=== PATIENT | male | born 1945 | race Caucasian/White ===

== ENCOUNTER 2024-08-16 09:35 | Day surgery (SDC) | payer MEDICARE ==
[2024-08-10 10:40] LABS: BASOPHILS % (AUTO) 0.8 % (0-1); EOSINOPHILS # (AUTO) 0.1 X10'3 (0-0.9); EOSINOPHILS % (AUTO) 3.4 % (0-6); LYMPHOCYTES # (AUTO) 1.4 X10'3 (1.1-4.8); LYMPHOCYTES % (AUTO) 38.2 % (21-51); MEAN CORPUSCULAR HEMOGLOBIN 32.2 PG (27.0-31.0); MEAN CORPUSCULAR HGB CONC 34.7 g/dL (33.0-36.5); MEAN CORPUSCULAR VOLUME 92.8 FL (78-98); MEAN PLATELET VOLUME 8.9 FL (7.4-10.4); MONOCYTES # (AUTO) 0.2 X10'3 (0-0.9); NEUTROPHILS % (AUTO) 52.6 % (42-75); PRE OP HEMATOCRIT 39.5 % (42.0-52.0); PRE OP HEMOGLOBIN 13.7 g/dL (14.0-17.9); PRE OP WHITE BLOOD COUNT 3.7 10'3 (4.8-10.8); RED BLOOD COUNT 4.25 X10'6 (4.70-6.10); RED CELL DISTRIBUTION WIDTH 15.6 % (11.5-14.5)
[2024-08-10 10:57] LABS: ALBUMIN 4.3 G/DL (3.4-5.0); BLOOD UREA NITROGEN 16 MG/DL (7-18); BUN/CREATININE RATIO 20.3 (10.0-20.0); CALCIUM 8.7 MG/DL (8.5-10.1); CHLORIDE 105 MMOL/L (99-107); CREATININE 0.79 MG/DL (0.60-1.10); PRE OP ALT 40 U/L (30-65); PRE OP ANION GAP 6 (8-16); PRE OP AST 27 U/L (10-37); PRE OP GLUCOSE 101 MG/DL (70-104); PRE OP SODIUM 142 MMOL/L (135-145); TOTAL CARBON DIOXIDE 30.9 MMOL/L (24-32); eGFR > 90 ML/MIN
[2024-08-10 10:59] LABS: PRE OP PLATELET COUNT 77 X10'3 (140-440)
[2024-08-10 11:17] LABS: ALBUMIN/GLOBULIN RATIO 1.4 (1.1-1.5); ALKALINE PHOSPHATASE 78 IU/L (46-116); PRE OP BILIRUB, TOTAL 0.6 MG/DL (0.0-1.0); TOTAL PROTEIN 7.3 G/DL (6.4-8.2)
[2024-08-16] VITALS (10 sets, daily range): BP systolic 117–135; BP diastolic 60–77; PULSE 50–66; RESP 12–16; TEMP 97.8; O2SAT 94–99
[~2024-08-16] VITALS: Ht 185.4 cm; Wt 104.1 kg
[2024-08-16] MEDS: ceFAZolin 2gm in dextrose, iso 50 ML IV ONE (05:30)
[~2024-08-16 09:35] MED LIST: DAPA10TA; FINA5TAB11; FLO0.4C; INSU100I38; LEVO112T5; MULT-1249 PO; ROSU40TA89; TIRZ5PEN
[2024-08-16] MEDS: famotidine 20mg tablet PO ONE (10:05)
[2024-08-16] MEDS: ringers solution, lacted 1,000 ML IV SCH (10:06)
[2024-08-16] MEDS ORDERED: iohexol 350MG/ML 100ml bottle IV ONE (11:09)
[2024-08-16] MEDS ORDERED: STERILE BLADIN ONE (11:10)
[2024-08-16] MEDS ORDERED: WATER FOR INJ BLADIN ONE (11:10)
[2024-08-16] MEDS ORDERED: MITOMYCIN BLADIN ONE (11:10)
[2024-08-16] MEDS ORDERED: propofol inj 20 ML IV ONE (11:21)
[2024-08-16] MEDS ORDERED: midazolam 1 mg/ML 2ml injection ONE (11:21)
[2024-08-16] MEDS ORDERED: fentaNYL/PF 50MCG/1 ML 2ML syringe ONE (11:21)
[2024-08-16] MEDS ORDERED: sevoflurane 250ml liquid IH ONE (11:22)
[2024-08-16] MEDS ORDERED: morphine 2 MG/ML inj. syringe IV PRN (12:10)
[2024-08-16] MEDS ORDERED: morphine 4 MG/ML inj SYRINge IV PRN (12:10)
[2024-08-16] MEDS ORDERED: proCHLORperazine 10 MG/2 ml inj IV PRN (12:10)
[2024-08-16] MEDS ORDERED: ondansetron/PF 4mg/2ml inj IV PRN (12:10)
[2024-08-16] MEDS ORDERED: meperidine/PF 25mg/ml syringe IV PRN ×3 (12:10)
[2024-08-16] MEDS ORDERED: ringers solution, lacted 1,000 ML IV SCH (12:10)
[2024-08-16] MEDS: iohexol 350MG/ML 100ml bottle IV ONE (12:10)
== END 2024-08-16 13:59 | disposition home or self-care (01) ==
LOC: PAS 09:35 → EDSEX 15:45
PROVIDERS: ATTEND Urology
DX: C67.9 Malignant neoplasm of bladder, unspecified (principal); N32.89 Other specified disorders of bladder; I49.1 Atrial premature depolarization; E03.9 Hypothyroidism, unspecified; M19.90 Unspecified osteoarthritis, unspecified site; E11.9 Type 2 diabetes mellitus without complications; E78.5 Hyperlipidemia, unspecified; Z87.891 Personal history of nicotine dependence; Z85.51 Personal history of malignant neoplasm of bladder; Z79.4 Long term (current) use of insulin; Z98.890 Other specified postprocedural states; Z79.890 Hormone replacement therapy; Z83.3 Family history of diabetes mellitus
CPT/HCPCS: 36415; 52235; 74420; 80053; 82948; 85025; 93005; A4355; A4618; A6258; C1758; J0690; J2250; J2704; J3010; J7030; J7120; J9280; Q9967; Z7506; Z7508; Z7512; Z7610; 76000; 88307; J7050